=== PATIENT | female | born 1960 | race Caucasian/White ===

== ENCOUNTER → 2023-08-09 10:30 | Outpatient (REF) | payer BC, SELFPAY | LOC: RAD 10:30 | PROVIDERS: ATTENDING PHYSICIAN Internal Medicine | DX: K43.9 Ventral hernia without obstruction or gangrene (principal) | CPT/HCPCS: 76705 ==

== ENCOUNTER → 2023-08-10 13:31 | Outpatient (REF) | payer BC, SELFPAY | LOC: WDC 13:31 | PROVIDERS: ATTENDING PHYSICIAN Internal Medicine | DX: Z12.31 Encounter for screening mammogram for malignant neoplasm of breast (principal) | CPT/HCPCS: 77063; 77067 ==

== ENCOUNTER → 2024-08-13 06:55 | Outpatient (REF) | payer BC, SELFPAY | LOC: WDC 06:55 | PROVIDERS: ATTENDING PHYSICIAN Physician Assistant Medical | DX: Z12.31 Encounter for screening mammogram for malignant neoplasm of breast (principal) | CPT/HCPCS: 77063; 77067 ==

== ENCOUNTER → 2024-10-02 16:10 | Outpatient (REF) | payer SELFPAY | LOC: RAD 16:10 | PROVIDERS: ATTENDING PHYSICIAN Internal Medicine | DX: E78.2 Mixed hyperlipidemia (principal) | CPT/HCPCS: 75571 ==

== ENCOUNTER 2024-10-26 09:45 | Emergency (ER) | payer BC, SELFPAY ==
[2024-10-26 09:51] VITALS: BP 155/108
[2024-10-26 11:08] VITALS: BP 136/88
[2024-10-26 11:18] VITALS: BMI 26.5
[2024-10-26 11:49] LABS: Hematocrit 42.5 % (37.0-47.0); Hemoglobin 14.1 g/dL (12.0-16.0); Mean Corp Hgb Conc. 33.2 g/dL (33.0-37.0); Mean Corpuscular Volume 87.8 fL (81.0-99.0); Nucleated Red Blood Cells % 0 %; Platelet Count 131 10^3/uL (130-400); Red Cell Dist. Width 13.1 % (11.5-14.5)
[2024-10-26 12:00] VITALS: BP 111/83
[2024-10-26 12:17] LABS: Troponin I < 0.012 ng/ml
[2024-10-26 12:28] LABS: ALT (SGPT) 21 U/L (0-35); AST (SGOT) 33 U/L (14-36); Albumin 4.8 g/dl (3.5-5.0); Alkaline Phosphatase 72 U/L (38-126); Blood Urea Nitrogen 13 mg/dl (7-17); Calcium 10.6 mg/dl (8.4-10.2); Carbon Dioxide 26 mmol/L (22-30); Chloride 104 mmol/L (98-107); Estimated Creatinine Clearance 68 ml/min; Glucose 75 mg/dl (70-99); Potassium 5.0 mmol/L (3.5-5.1); Sodium 139 mmol/L (135-145); Total Protein 7.7 g/dl (6.3-8.2); eGFR > 60.00
[2024-10-26] MEDS: FLEXERIL 10 MG PO (12:33)
[2024-10-26] MEDS: TYLENOL 1000 MG PO (12:33)
[2024-10-26 13:00] VITALS: BP 115/92
[2024-10-26 14:00] VITALS: BP 117/86
[2024-10-26] MEDS: NEURONTIN 300 MG PO (14:07)
--- NOTE | 2024-10-26 14:54 | ED.GENMED ---
History of Present Illness
General
Chief Complaint: Back Pain
Source: patient and spouse
Time Seen by Provider: 10/26/24 11:40
Nursing documentation reviewed up to this point in time: agreed with
History of Present Illness
History of Present Illness:
Note:
CHIEF COMPLAINT(S)
Left upper back pain radiating to the left arm.
HISTORY OF PRESENT ILLNESS
The patient is a 64-year-old female with a history of a 3.9 cm thoracic aortic aneurysm diagnosed during a coronary calcium evaluation on October 02. She presented with pain starting late Sunday afternoon, initiating in the left upper back and
radiating to her left arm. The pain occasionally fluctuates in intensity, sometimes radiating down the arm and sometimes subsiding. The patient also noted weakness in her left hand, making it difficult to perform tasks such as squeezing toothpaste.
She denied any chest pain. The symptoms were concerning enough for her to seek urgent care, where an x-ray prompted a recommendation for an emergency department evaluation with consideration for a computed tomography scan and cardiac consultation.
ADDITIONAL HISTORY OBTAINED FROM SOURCE OTHER THAN THE PATIENT
No external sources of additional history were identified in this encounter.
SOCIAL [employer]ERMINANTS AFFECTING HEALTH
The patient is currently on a waitlist to see a laborer pole crew at [facility]. Despite the urgency of her condition, she has been unable to secure an earlier appointment, highlighting potential barriers to timely healthcare access.
FAMILY HISTORY
The patient reports her father underwent an emergency bypass surgery and valve replacement, but was unaware of any familial aneurysm history.
REVIEW OF SYSTEMS
- Musculoskeletal: Left upper back pain radiating to the left arm; weakness in the left hand.
- Cardiovascular: No chest pain.
- Neurological: Weakness in the left hand, making it difficult to squeeze toothpaste.
PHYSICAL EXAM
- General: No acute distress.
- Head, Ear, Nose, and Throat (HENT): Pupils equal, round, and reactive to light with extraocular movements intact.
- Cardiovascular: Regular rate and rhythm with no murmur, rub, or gallop. S1 and S2 heart sounds noted, equal pulses in all extremities.
- Pulmonary: Lungs clear bilaterally.
- Abdomen: Soft, non-tender, non-distended.
- Extremities: No edema, normal range of motion.
- Musculoskeletal: Tenderness noted in the left trapezius and paraspinal muscles reproducing the described pain.
- Nursing notes reviewed and vital signs reviewed.
PROBLEM LIST
Acute:
1. Upper back pain radiating to the left arm.
2. Weakness in the left hand.
3. Thoracic aortic aneurysm.
PLAN
1. Pain Management: Prescribe analgesic medication for pain relief.
2. Consult Cardiology: Encourage follow-up with cardiology for further evaluation of the aneurysm and medical management.
3. Monitor: Recommend the patient seeks immediate evaluation for any new or worsening symptoms, particularly chest pain or increased back pain.
4. Radiology Consideration: Strategic discussion about the timing and necessity of imaging given the potential need for lifelong monitoring of the aneurysm to avoid excessive exposure.
DIFFERENTIAL DIAGNOSIS
The Differential Diagnosis includes, in no particular order and is not limited to:
1. Musculoskeletal strain
2. Thoracic radiculopathy
3. Thoracic aortic aneurysm expansion or complication
4. Cervical herniated disc
5. Cardiac ischemia
6. Costochondritis
7. Herpes zoster (pre-eruption)
8. Brachial plexopathy
9. Thoracic outlet syndrome
10. Referred pain from visceral sources (e.g., peptic ulcer disease)
CARE-UPDATE
10/26/24 - 14:55
CT chest down to pelvis shows no change in very slight aortic aneurysm. Improvement in patients pain after receiving Neurontin, no signs of aortic dissection. Will discharge patient to follow up with cardiology and primary care. Prescribe Neurontin
for pain management, likely musculoskeletal in origin.
Disposition:
SUMMARY OF ENCOUNTER
The patient, a 64-year-old female with a known thoracic aortic aneurysm, presented to the emergency department with left upper back pain radiating to the left arm and weakness in the left hand. This pain began late Sunday afternoon and caused
concern due to its fluctuating intensity and occasional radiation down the arm, prompting an evaluation in the emergency department. Given the history of the thoracic aortic aneurysm, a CT scan was performed to rule out any dissection, which showed
no change in the aneurysm size. Pain management with Neurontin was initiated, resulting in significant pain improvement. The condition was assessed as likely musculoskeletal in origin.
DISPOSITION
Discharge
ASSESSMENT
The primary assessment is that the patients upper back pain is likely due to a musculoskeletal strain, with additional consideration given to her existing thoracic aortic aneurysm, which showed no acute changes.
EMERGENCY TREATMENTS ADMINISTERED
Neurontin for pain management.
PLAN
1. Continue pain management with Neurontin.
2. Follow up with cardiology for ongoing evaluation of the thoracic aortic aneurysm.
3. Follow-up with primary care for continued management and monitoring of her symptoms.
INDEPENDENT REVIEW OF LABS AND INTERPRETATION OF TESTS
- My independent review of the CT chest down to pelvis shows no change in the thoracic aortic aneurysm, and there are no signs of aortic dissection.
PATIENT EDUCATION AND COUNSELING
Educated the patient about her condition being primarily musculoskeletal and emphasized the importance of following up with cardiology to monitor the aneurysm.
FOLLOW-UP INSTRUCTIONS
Please call to schedule a follow-up visit with cardiology and primary care as soon as possible for further evaluation and continued care.
MEDICATION RECONCILIATION
- Prescribed Neurontin (gabapentin) for pain management.
MEDICAL DECISION MAKING
-Complexity of Data Reviewed: Chronic conditions affecting care include thoracic aortic aneurysm. Differential diagnosis included musculoskeletal strain, thoracic radiculopathy, thoracic aortic aneurysm expansion, among others.
-Data:
- Category 1: My independent interpretation of the CT scan suggests stability of the thoracic aortic aneurysm, ruling out acute complications.
-Risk:
Consideration of Admission/Observation: Escalation of care including admission/observation was considered given the complexity and risk of the patients presenting complaint and underlying thoracic aortic aneurysm. However, ultimately the patient is
deemed safe for outpatient management with close follow-up. Reasoning: Work-up reassuring, does not reveal any acute life/organ threatening processes, patients symptoms well controlled upon re-evaluation, re-examination is reassuring, vitals are
stable, patient agreeable with discharge, reliable for follow-up.
DIAGNOSIS
- Upper back strain [ICD-10: M53.8]
- Thoracic aortic aneurysm, without rupture [ICD-10: I71.2]
Phy Exam
Physical Exam
Physical Exam:
.
Course
Orders/Labs/Results
Orders:
Orders
10/26/24 09:55
Electrocardiogram (*1) Urgent
Reason for Study: Chest Pain
EKG- Treatment ONCE
10/26/24 11:30
Complete Blood Count/With Diff Urgent
Comprehensive Metabolic Panel Urgent
Troponin I Urgent
10/26/24 12:03
CT Chest/abd/pelvis Angio W/wo Urgent
Comment:
Reason For Exam: back pain since this am, recent TAA seen on ct
10/26/24 12:28
Acetaminophen [Tylenol] 1,000 mg PO NOW STA
Cyclobenzaprine HCl [Flexeril] 10 mg PO NOW STA
10/26/24 13:46
Gabapentin [Neurontin] 300 mg PO NOW STA
Abnormal Lab Results
10/26/24
11:30
Monocytes % 9.5 H %
(1.7-9.3)
Eosinophils % 9.9 H %
(0-6)
Calcium 10.6 H mg/dl
(8.4-10.2)
10/26/24 11:30
10/26/24 11:30
Vital Signs
Initial and Last Documented VS:
Initial Vital Signs
Temp Pulse Resp BP Pulse Ox
97.9 F 90 16 155/108 98
10/26/24 09:51 10/26/24 09:51 10/26/24 09:51 10/26/24 09:51 10/26/24 09:51
Last Documented Vital Signs
Temp Pulse Resp BP Pulse Ox
97.9 F 70 11 111/83 99
10/26/24 09:51 10/26/24 12:15 10/26/24 12:15 10/26/24 12:00 10/26/24 12:15
*Pulse Oximetry
SaO2: 99
Oxygen Mode of Delivery: Room air
Patient hypoxic: no
*Critical Care Note
Total Time (30-74mins, 75-104mins- exclusive of procedures): Not Applicable
ED Attending Note
-
Portions of this chart may have been created with voice recognition software.� Occasional wrong word or��sound alike� substitutions may have occurred due to the inherent limitations of voice recognition software.
Discharge Plan
Departure
Patient Disposition: Home (Routine Discharge)
Date of Disposition: 10/26/24
Time of Disposition: 14:57
Patient with high blood pressure during this ER visit?: No
Condition: Good
Discharge Problem:
Upper back strain
Instructions: Upper Back Pain (DC)
Prescriptions:
New
gabapentin [Neurontin] 300 mg capsule
300 mg PO TID PRN (Reason: back pain) Qty: 30 0RF
Referrals:
Kaushal Hull MD [Family Provider, Internal Medicine] - Call in 1-3 days for appt
Interventions
Interventions:
*Risk Screen - Suicide Last Done: 10/26/24 09:56
*General Assessment Last Done: 10/26/24 11:20
*Neglect/Abuse Screening Last Done: 10/26/24 09:56
*ED- Fall Risk Assessment Last Done: 10/26/24 11:20
*ED COVID-19 Vaccine History Last Done: 10/26/24 11:20
ED-Musculoskeletal Assessment Last Done: 10/26/24 11:34
Discharge Date and Time
Print Language: MALAY
[2024-10-26 15:00] VITALS: BP 119/85
== END 2024-10-26 15:23 | disposition home or self-care (01) ==
LOC: EMR 09:45
PROVIDERS: EMERGENCY PHYSICIAN Emergency Medicine; FAMILY PHYSICIAN Internal Medicine
DX: S29.012A Strain of muscle and tendon of back wall of thorax, initial encounter (principal); I71.20 Thoracic aortic aneurysm, without rupture, unspecified; R53.1 Weakness; M79.602 Pain in left arm; X58.XXXA Exposure to other specified factors, initial encounter; E78.5 Hyperlipidemia, unspecified; G43.909 Migraine, unspecified, not intractable, without status migrainosus
CPT/HCPCS: 99285; 71275; 74174; 80053; 84484; 85025; 93005; Q9967

== ENCOUNTER → 2024-10-31 13:35 | Outpatient (REF) | payer BC, SELFPAY | LOC: RCS 13:35 | PROVIDERS: ATTENDING PHYSICIAN Physician Assistant | DX: R94.31 Abnormal electrocardiogram [ECG] [EKG] (principal); G47.33 Obstructive sleep apnea (adult) (pediatric) | CPT/HCPCS: 93306 ==

== ENCOUNTER → 2024-12-08 14:32 | Outpatient (REF) | payer BC, SELFPAY | LOC: HWRAD 14:32 | PROVIDERS: ATTENDING PHYSICIAN Internal Medicine | DX: E04.1 Nontoxic single thyroid nodule (principal) | CPT/HCPCS: 76536 ==